=== PATIENT | female | born 1985 | race Caucasian/White ===

== ENCOUNTER 2020-04-30 11:14 | Emergency (ER) | payer OTHER ==
[~2020-04-30] VITALS: Ht 160 cm; Wt 78.2 kg
--- NOTE | 2020-04-30 11:50 | PHYS DOC ---
Past History Past Medical History: No Pertinent History Alcohol Use: None General Adult EDM: Chief Complaint: ABDOMINAL PAIN HPI: HPI: History obtained from the patient. Patient is 34-year-old female with no reported past medical history who presents with chief complaint of right-sided abdominal discomfort. States the pain began approximately 5 PM last night. States pain is gradual in onset. She states that she did check her temperature at that time and noted herself to have a fever of 102.0. Did take Tylenol. States she checked her temperature several hours later noted to be 100.0. She checked it again overnight and noted to be normal. She notes a couple episodes of nonbloody loose stools since the pain began. States she did try eating prabha kfast this morning but it made her nauseous. Denies vomiting. Denies urinary symptoms. States her last menstrual period was 2 to 3 weeks ago. Denies any abdominal surgical history. Denies history of colonoscopy or EGD. Denies history of dyspepsia or gallbladder issues. Denies vaginal bleeding or discharge. She states her nursing friend told her that she may have appendiciti s so she presented to the emergency department. She does note some increased discomfort in her abdomen she breathes in. States the pain seems worse in her right upper quadrant however. Denies tobacco or alcohol use. Denies recreational drug use. States pain is sharp and constant. No other complaints. Review of Systems: Review of Systems: Constitutional: Denies fever or chills Eyes: Denies change in visual acuity HENT: Denies nasal congestion or sore throat Respiratory: Denies cough or shortness of breath Cardiovascular: Denies chest pain or edema GI: Positive for abdominal pain, loose stool, nausea : Denies dysuria Musculoskeletal: Denies back pain or joint pain Integument: Denies rash Neurologic: Denies headache, focal weakness or sensory changes Endocrine: Denies polyuria or polydipsia Lymphatic: Denies swollen glands Psychiatric: Denies depression or anxiety Allergies: Allergies: Allergies Coded Allergies Type Severity Reaction Last Updated Verified No Known Drug Allergies 04/30/20 No Physical Exam: PE: Constitutional: Well developed, well nourished, no acute distress, non-toxic appearance. [] HENT: Normocephalic, atraumatic, bilateral external ears normal, oropharynx moist, no oral exudates, nose normal. [] Eyes: PERRLA, EOMI, conjunctiva normal, no discharge. [] Neck: Normal range of motion, no tenderness, supple, no stridor. [] Cardiovascular:Heart rate regular rhythm, no murmur [] Lungs & Thorax: Bilateral breath sounds clear to auscultation [] Abdomen: Mild reproducible tenderness of right upper quadrant palpation. No reproducible tenderness in the right lower quadrant. No involuntary guarding or rigidity noted. No acute peritonitis. Skin: Warm, dry, no erythema, no rash. [] Back: No tenderness, no CVA tenderness. [] Extremities: No tenderness, no cyanosis, no clubbing, ROM intact, no edema. [] Neurologic: Alert and oriented X 3, normal motor function, normal sensory function, no focal deficits noted. [] Psychologic: Affect normal, judgement normal, mood normal. [] Current Patient Data: Labs: Laboratory Tests Test 04/30/20 11:54 04/30/20 12:10 04/30/20 12:22 Urine Collection Type Unknown Urine Color Yellow Urine Clarity Hazy Urine pH 5.5 Urine Specific [place] 1.025 Urine Protein Neg Urine Glucose (UA) Neg mg/dL Urine Ketones (Stick) Neg mg/dL Urine Blood Neg Urine Nitrite Neg Urine Bilirubin Neg Urine Urobilinogen Dipstick 0.2 mg/dL Urine Leukocyte Esterase Neg Urine RBC Occ /HPF Urine WBC 1-4 /HPF Urine Squamous Epithelial Cells Mod /LPF Urine Bacteria Few /HPF Urine Mucus Marked /LPF Urine Test Negative White Blood Count 9.5 x10^3/uL Red Blood Count 4.26 x10^6/uL Hemoglobin 12.8 g/dL Hematocrit 38.0 % Mean Corpuscular Volume 89 fL Mean Corpuscular Hemoglobin 30 pg Mean Corpuscular Hemoglobin Concent 34 g/dL Red Cell Distribution Width 12.9 % Platelet Count 321 x10^3/uL Neutrophils (%) (Auto) 69 % Lymphocytes (%) (Auto) 20 % Monocytes (%) (Auto) 10 % Eosinophils (%) (Auto) 1 % Basophils (%) (Auto) 0 % Neutrophils # (Auto) 6.6 x10^3uL Lymphocytes # (Auto) 1.9 x10^3/uL Monocytes # (Auto) 1.0 x10^3/uL Eosinophils # (Auto) 0.1 x10^3/uL Basophils # (Auto) 0.0 x10^3/uL Sodium Level 138 mmol/L Potassium Level 3.6 mmol/L Chloride Level 102 mmol/L Carbon Dioxide Level 27 mmol/L Anion Gap 9 Blood Urea Nitrogen 10 mg/dL Creatinine 0.9 mg/dL Estimated GFR (Cockcroft-Gault) 72.6 BUN/Creatinine Ratio 11 Glucose Level 90 mg/dL Calcium Level 8.5 mg/dL Total Bilirubin 0.4 mg/dL Aspartate Amino Transf (AST/SGOT) 15 U/L Alanine Aminotransferase (ALT/SGPT) 20 U/L Alkaline Phosphatase 52 U/L Total Protein 7.6 g/dL Albumin 3.4 g/dL Albumin/Globulin Ratio 0.8 Lipase 176 U/L Bedside Urine HCG, Qualitative hcg negative Current Medications Medications (Trade) Dose Ordered Sig/Viv Route PRN Reason Start Time Stop Time Status Last Admin Dose Admin Metoclopramide HCl (Reglan Vial) 10 mg 1X ONCE IVP 04/30/20 12:00 04/30/20 12:01 DC Famotidine (Pepcid Vial) 20 mg 1X ONCE IVP 04/30/20 12:00 04/30/20 12:01 DC Morphine Sulfate (Morphine 4mg Syringe) 4 mg 1X ONCE IV 04/30/20 12:00 04/30/20 12:01 DC Iohexol (Omnipaque 300 Mg/ml) 75 ml 1X ONCE IV 04/30/20 12:15 04/30/20 12:16 DC 04/30/20 12:15 Vital Signs: Vital Signs Date Time Temp Pulse Resp B/P (MAP) Pulse Ox O2 Delivery O2 Flow Rate FiO2 04/30/20 11:35 98.6 93 14 145/86 (105) 99 Room Air EKG: EKG: [] Radiology/Procedures: Radiology/Procedures: [address] [address] IMAGING REPORT Signed PATIENT: ELICIA VIDAL ACCOUNT: [id number] : 1985 LOCATION: ER AGE: 34 SEX: F EXAM STATUS: REG ER ORD. PHYSICIAN: DIRK COOK DO REASON: RUQ pain. concern for cholecystitis PROCEDURE: ABDOMEN LTD EXAMINATION: US ABDOMEN LTD 04/30/2020 1:52 PM INDICATION: Right upper quadrant pain TECHNIQUE: Garrett scale and color Doppler ultrasound images of the right upper quadrant were obtained. COMPARISON: CT abdomen and pelvis 04/30/2020. FINDINGS: Liver: The liver is normal in size measuring 14.5 cm in length. Normal hepatic echogenicity. No focal liver lesion. Gallbladder: The gallbladder is normal in caliber. No cholelithiasis or sludge. The gallbladder wall is thickened measuring 3 mm. There is mild per icholecystic fluid. Sonographic Garcia sign is positive. Bile ducts: The common bile duct is normal measuring 2 mm. No intrahepatic biliary duct dilatation. Right kidney: The right kidney measures 11.3 x 4.7 x 5.4 cm. Normal cortical thickness and echogenicity. No hydronephrosis. Other: The inferior vena cava is patent where visualized. The pancreas is not well visualized. IMPRESSION: Mild gallbladder wall thickening and pericholecystic fluid with positive sonographic Garcia sign. Findings could be seen with acute cholecystitis, however there is no cholelithiasis. Correlate with cholestatic parameters for acute cholecystitis. Electronically signed by: Kaylynn Rodriguez MD (04/30/2020 2:19 PM) [id number] DICTATED AND SIGNED BY: KAYLYNN RODRIGUEZ MD DATE: 04/30/20 141 CC: PCP,UNKNOWN; DIRK COOK DO ~MTH0 0 [] Heart Score: Risk Factors: Risk Factors: DM, Current or recent (<one month) smoker, HTN, HLP, family history of CAD, obesity. Risk Scores: Score 0 - 3: 2.5% MACE over next 6 weeks - Discharge Home Score 4 - 6: 20.3% MACE over next 6 weeks - Admit for Clinical Observation Score 7 - 10: 72.7% MACE over next 6 weeks - Early Invasive Strategies Course & Med Decision Making: Course & Med Decision Making Pertinent Labs and Imaging studies reviewed. (See chart for details) Patient is a 34-year-old female presents with chief complaint of right upper quadrant abdominal pain. Patient does have reproducible tenderness to the right upper quadrant. Vitals normal. Labs unremarkable. CT imaging shows p ericholecystic fluid. Right upper quadrant ultrasound was obtained and does show mild pericholecystic fluid as well as gallbladder wall thickening. No signs of obvious cholelithiasis. On repeat assessment she is still quite tender in the right upper quadrant. Positive sonographic Garcia sign. I did discuss case with general surgeon Dr. Dai because I feel the patient may benefit from inpatient HIDA scan. Dr. Dai concurs. Patient will be [facility] for further care. She has remained hemodynamically stable in our emergency department. Case discussed and has been accepted by hospitalist Dr. Haddad. Bryan Disclaimer: Bryan Disclaimer: This electronic medical record was generated, in whole or in part, using a voice recognition dictation system. Departure Departure: Impression: Primary Impression: RUQ abdominal pain Additional Impression: Abnormal abdominal ultrasound Disposition: 02 DC/TRF OTHER SHORT TERM HOS Condition: STABLE Referrals: PCP,UNKNOWN (PCP) DIRK COOK DO Apr 30, 2020 11:50
[2020-04-30] MEDS ORDERED: MORPHINE SULFATE 4 MG/ML DISP.SYRIN. IV ONE (12:00)
[2020-04-30] MEDS ORDERED: FAMOTIDINE 20 MG/2 ML VIAL IVP ONE (12:00)
[2020-04-30] MEDS ORDERED: METOCLOPRAMIDE HCL 10 MG/2 ML VIAL. IVP ONE (12:00)
[2020-04-30] MEDS ORDERED: IOHEXOL 300 MG/ML 75 ML VIAL. IV ONE (12:15)
[2020-04-30 12:27] LABS: BASO % 0 % (0-3); EOS # 0.1 x10^3/uL (0.0-0.7); EOS % 1 % (0-3); HEMOGLOBIN 12.8 g/dL (12.0-15.5); LYMPH # 1.9 x10^3/uL (1.0-4.8); LYMPH % 20 % (24-48); MEAN CORPUSCULAR HEMOGLOBIN 30 pg (25-35); MEAN CORPUSCULAR HGB CONC 34 g/dL (31-37); MEAN CORPUSCULAR VOLUME 89 fL (79-100); MONO % 10 % (0-9); NEUT # 6.6 x10^3uL (1.8-7.7); NEUT % 69 % (31-73); PLATELET COUNT 321 x10^3/uL (140-400); RED BLOOD COUNT 4.26 x10^6/uL (3.50-5.40); RED CELL DISTRIBUTION WIDTH 12.9 % (11.5-14.5); WHITE BLOOD COUNT 9.5 x10^3/uL (4.0-11.0)
[2020-04-30 12:32] LABS: BILIRUBIN,URINE NEG (NEG); CLARITY,URINE HAZY; COLOR,URINE YELLOW; GLUCOSE,URINE NEG (NEG); NITRITE,URINE NEG (NEG); UROBILINOGEN,URINE 0.2 mg/dL (0.2 mg/dL)
[2020-04-30 12:33] LABS: U PREG PATIENT NEGATIVE (NEG)
[2020-04-30 12:36] LABS: BACTERIA,URINE FEW /HPF (0-FEW); RBC,URINE OCC /HPF (0-2); SQUAMOUS EPITHELIAL CELL,UR MOD /LPF
--- NOTE | 2020-04-30 12:36 | RAD ---
Study: CT abdomen/pelvis with intravenous contrast Indication: Right-sided abdominal pain. Fever. Loose stools. Comparison: None. Technique: Helical CT imaging performed of the abdomen and pelvis after the intravenous administratio n of 56 cc contrast. Sagittal and coronal reformats were obtained. One or more of the following individualized dose reduction techniques were utilized for this examinat ion: 1. Automated exposure control 2. Adjustment of the mA and/or kV according to patient size 3. Use of iterative reconstruction technique. Findings: Circumferential gallbladder wall thickening/edema. Normal biliary tree. Hepatic steatosis. Unremarkab le pancreas, spleen and adrenal glands. No complex renal cyst or mass. Limited assessment for intrarenal stones due to early excretion of con trast. No collecting system dilatation. Poorly assessed urinary bladder due to underdistention. Small focus of low attenuation in the expected region of the proximal cervix, image [address] likely a nabothian cyst. Within normal limits endometrial thickness for patient age. Several ovari an follicles bilaterally. Much of the colonic lumen is collapsed. No significant pericolonic inflammation to suggest an active colitis. Normal appendix, image 55 series 2. Nonobstructed small bowel. Unremarkable stomach. Within normal limits major vasculature. No lymphadenopathy. Trace free pelvic fluid. No pneumoperiton eum. Unremarkable body wall soft tissues. Unremarkable visualized lungs and mediastinal contents. Asymmetr ic periarticular sclerosis at the iliac side of the right SI joint without a discrete erosion or anky losis. Mild broad lumbar dextrocurvature. Transitional lumbosacral anatomy. Impression: 1. Circumferential wall thickening/edema of the gallbladder highly suspicious for acute cholecystiti s. Recommend targeted ultrasound to further assess for stones as no calcified stones are apparent on this exam. 2. Hepatic steatosis. 3. The CT appearance of the reproductive organs are within the broad range of normal for patient age . Trace free fluid within the pelvis is most likely physiologic. Electronically signed by: DORON NICOLE MD (04/30/2020 12:34 PM) [id number]
[2020-04-30 12:38] LABS: CALCIUM 8.5 mg/dL (8.5-10.1); CREATININE 0.9 mg/dL (0.6-1.0); GFR 72.6; POTASSIUM 3.6 mmol/L (3.5-5.1)
[2020-04-30 12:44] LABS: ALBUMIN 3.4 g/dL (3.4-5.0); ALBUMIN/GLOBULIN RATIO 0.8 (1.0-1.7); TOTAL BILIRUBIN 0.4 mg/dL (0.2-1.0); TOTAL PROTEIN 7.6 g/dL (6.4-8.2)
--- NOTE | 2020-04-30 14:21 | RAD ---
EXAMINATION: US ABDOMEN LTD 04/30/2020 1:52 PM INDICATION: Right upper quadrant pain TECHNIQUE: Garrett scale and color Doppler ultrasound images of the right upper quadrant were obtained. COMPARISON: CT abdomen and pelvis 04/30/2020. FINDINGS: Liver: The liver is normal in size measuring 14.5 cm in length. Normal hepatic echogenicity. No foc al liver lesion. Gallbladder: The gallbladder is normal in caliber. No cholelithiasis or sludge. The gallbladder wal l is thickened measuring 3 mm. There is mild pericholecystic fluid. Sonographic Garcia sign is positi ve. Bile ducts: The common bile duct is normal measuring 2 mm. No intrahepatic biliary duct dilatation. Right kidney: The right kidney measures 11.3 x 4.7 x 5.4 cm. Normal cortical thickness and echogenic ity. No hydronephrosis. Other: The inferior vena cava is patent where visualized. The pancreas is not well visualized. IMPRESSION: Mild gallbladder wall thickening and pericholecystic fluid with positive sonographic Murp hy sign. Findings could be seen with acute cholecystitis, however there is no cholelithiasis. Correla te with cholestatic parameters for acute cholecystitis. Electronically signed by: Kaylynn Rodriguez MD (04/30/2020 2:19 PM) [id number]
[2020-04-30 19:48] VITALS: BP 128/85
== END 2020-04-30 19:20 | disposition short-term general hospital (02) ==
LOC: ER 11:14
DX: R93.5 Abnormal findings on diagnostic imaging of other abdominal regions, including retroperitoneum (principal); R10.11 Right upper quadrant pain; R19.7 Diarrhea, unspecified; Z20.822 Contact with and (suspected) exposure to COVID-19
CPT/HCPCS: 36415; 74177; 76705; 80053; 81001; 81025; 83690; 85025; 87426; 99285; C9803; Q9967; U0003